=== PATIENT | male | born 1995 | race African-American/Black ===

== ENCOUNTER 2021-10-29 02:04 | Emergency (ER) | payer OTHER ==
[~2021-10-29] VITALS: Ht 177.8 cm; Wt 65.9 kg
[2021-10-29 02:41] LABS: HEMATOCRIT 23.2 % (42.0-52.0); HEMOGLOBIN 7.2 g/dl (13.5-17.5); MEAN CORPUSCULAR VOLUME 74.1 fl (80.0-96.0); PLATELET COUNT, AUTOMATED 231 10^3/uL (150-450); RED BLOOD COUNT 3.13 10^6/uL (4.30-6.10); WHITE BLOOD COUNT 4.1 10^3/uL (4.0-10.0)
[2021-10-29 03:02] LABS: BASOPHILS 3 % (0-1); LYMPHOCYTES 13 % (16-44); MONOCYTES 9 % (0-5); NEUTROPHILS 75 % (28-66)
[2021-10-29 03:03] LABS: ANISOCYTOSIS 2+; HYPOCHROMASIA 1+; MICROCYTOSIS 2+; OVALOCYTES 1+; PLATELET ESTIMATE NORMAL (NORMAL); SMUDGE CELLS 1+
[2021-10-29 03:13] LABS: BLOOD UREA NITROGEN 13 MG/DL (7-18); CARBON DIOXIDE LEVEL 23 MEQ/L (21-32); CHLORIDE LEVEL 96 MEQ/L (98-107); CREATININE FOR GFR 0.69 MG/DL (0.70-1.30); GLOMERULAR FILTRATION RATE > 60.0 (>60); GLUCOSE, FASTING 107 MG/DL (70-100); POTASSIUM SERUM 3.6 MEQ/L (3.5-5.1); SODIUM LEVEL 128 MEQ/L (136-145)
[2021-10-29] MEDS ORDERED: FLUCONAZOLE 100 MG TAB PO ONE (06:30)
[2021-10-29] MEDS ORDERED: FLUC100T3 PO (06:32)
[2021-10-29 06:46] VITALS: BP 143/63
== END 2021-10-29 06:51 | disposition home or self-care (01) ==
LOC: M ED 02:04
DX: D64.9 Anemia, unspecified (principal); B37.81 Candidal esophagitis; E87.1 Hypo-osmolality and hyponatremia; B20 Human immunodeficiency virus [HIV] disease; K21.9 Gastro-esophageal reflux disease without esophagitis; Z79.899 Other long term (current) drug therapy